=== PATIENT | female | born 1940 | race Caucasian/White ===

== ENCOUNTER 2016-11-14 17:07 | Inpatient (IN) | payer MEDICARE, MEDICAID ==
[~2016-11-14] VITALS: Ht 165.1 cm; Wt 73.7 kg
[~2016-11-14 17:07] MED LIST: ACET-784 PO; CITA20TA9 PO; DONE10TA PO; LOVA20 PO; MEMA10TA11 PO; MERO1I IV; QUET25TA PO
[2016-11-14 18:07] LABS: BASOPHILS % (AUTO) 0.2 % (0.0-2.0); EOSINOPHILS % (AUTO) 1.5 % (1.0-6.0); HEMATOCRIT 48.5 % (36-46); HEMOGLOBIN 15.9 g/dL (12.0-16.0); LYMPHOCYTES # (AUTO) 1.8 K/uL (1.0-4.8); LYMPHOCYTES % (AUTO) 18.3 % (22.0-44.0); MEAN CORPUSCULAR HEMOGLOBIN 30.3 pg (26.0-34.0); MEAN CORPUSCULAR HGB CONC 32.7 G/dL (31.0-37.0); MEAN CORPUSCULAR VOLUME 92 fL (80-100); MONOCYTES # (AUTO) 0.5 K/uL (0.1-1.0); MONOCYTES % (AUTO) 4.6 % (2.0-9.0); NEUTROPHILS # (AUTO) 7.4 K/uL (1.8-7.7); NEUTROPHILS % (AUTO) 75.4 % (40.0-70.0); PLATELET COUNT (AUTO) 418 K/uL (150-450); RED BLOOD CELL COUNT(AUTO) 5.24 MIL/uL (4.00-5.20); RED CELL DISTRIBUTION WIDTH 13.7 % (11.5-14.5); WHITE BLOOD COUNT (AUTO) 9.8 K/uL (4.5-11.0)
[2016-11-14 18:22] LABS: ANION GAP 13 mmol/L (8-16); CALCIUM, TOTAL 10.1 mg/dL (8.8-10.5); CARBON DIOXIDE 24 mmol/L (22-29); CHLORIDE 100 mmol/L (98-107); CREATININE 0.79 mg/dL (0.60-1.30); GLOMERULAR FILTR. RATE CALC > 60 mL/min (>60); SODIUM SERUM 137 mmol/L (136-145); UREA NITROGEN, BLOOD 21 mg/dL (7-18)
[2016-11-14 18:24] LABS: ALANINE AMINOTRANSFERASE 38 U/L (12-78); ALBUMIN 3.6 g/dL (3.4-5.0); ASPARTATE AMINOTRANSFERASE 20 U/L (15-37); BILIRUBIN,TOTAL 0.4 mg/dL (0.1-1.0); TOTAL PROTEIN, SERUM 8.2 g/dL (6.4-8.2)
[2016-11-14 18:37] LABS: B-TYPE NATRIURETIC PEPTIDE 17 pg/mL (0-100)
[2016-11-14] MEDS ORDERED: SODIUM CHLORIDE 0.9% 500 ML IV ONE (19:30)
[2016-11-14 19:57] LABS: APPEARANCE,URINE CLOUDY (CLEAR); GLUCOSE, URINE (UA) NEGATIVE (NEGATIVE); KETONES,URINE 15 mg/dL (NEGATIVE); LEUKOCYTE ESTERASE ,URINE LARGE (NEGATIVE); OCCULT BLOOD,URINE MODERATE (NEGATIVE); PROTEIN,URINE TRACE (NEGATIVE)
[2016-11-14 19:59] LABS: ADD UA MICROSCOPIC YES
[2016-11-14 20:30] LABS: WBC,URINE 51-100 /HPF (0-5)
[2016-11-14] MEDS ORDERED: CIPROFLOXACIN 400 MG/D5% WATER 200 ML IV ONE (20:45)
[2016-11-14 20:50] LABS: GLUCOSE,POINT OF CARE 110 MG/DL (70-110)
[2016-11-14] MEDS ORDERED: MEROPENEM IV SCH (22:30)
[2016-11-14] MEDS ORDERED: ALBUTEROL SULFATE 2.5 MG/0.5 ML NEB SOLUTION NEB PRN (22:30)
[2016-11-14] MEDS ORDERED: ONDANSETRON HCL 4 MG/2 ML VIAL IVP PRN (22:30)
[2016-11-14] MEDS ORDERED: IPRATROPIUM BROMIDE 0.5 MG/2.5 ML NEB SOLUTION NEB PRN (22:30)
[2016-11-14] MEDS ORDERED: MAGNESIUM HYDROXIDE SUSPENSION 30 ML UDCUP PO PRN (22:30)
[2016-11-14] MEDS ORDERED: BISACODYL 10 MG RECTAL RECTAL SUPPOSITORY PR PRN (22:30)
[2016-11-14] MEDS ORDERED: LORazepam 2 MG/ML VIAL IVP PRN (22:30)
[2016-11-14] MEDS ORDERED: ZOLPIDEM TARTRATE 5 MG TABLET PO PRN (22:30)
[2016-11-14 23:36] VITALS: BP 144/83
[2016-11-15] MEDS ORDERED: SODIUM CHLORIDE 0.9% 250 ML IV ONE (00:11)
[2016-11-15] MEDS: MEROPENEM 1 GM in SODIUM CHLORIDE 0.9% 100 ML IV SCH ×3 (00:25→23:38)
[2016-11-15 05:20] VITALS: BP 120/68
[2016-11-15 08:20] VITALS: BP 133/75
[2016-11-15 08:28] LABS: BASOPHILS % (AUTO) 0.6 % (0.0-2.0); EOSINOPHILS % (AUTO) 2.4 % (1.0-6.0); HEMATOCRIT 39.3 % (36-46); HEMOGLOBIN 13.2 g/dL (12.0-16.0); LYMPHOCYTES # (AUTO) 1.2 K/uL (1.0-4.8); LYMPHOCYTES % (AUTO) 17.4 % (22.0-44.0); MEAN CORPUSCULAR HGB CONC 33.6 G/dL (31.0-37.0); MEAN CORPUSCULAR VOLUME 92 fL (80-100); MONOCYTES # (AUTO) 0.6 K/uL (0.1-1.0); MONOCYTES % (AUTO) 8.9 % (2.0-9.0); NEUTROPHILS % (AUTO) 70.7 % (40.0-70.0); PLATELET COUNT (AUTO) 344 K/uL (150-450); RED BLOOD CELL COUNT(AUTO) 4.25 MIL/uL (4.00-5.20); RED CELL DISTRIBUTION WIDTH 13.5 % (11.5-14.5)
[2016-11-15 08:47] LABS: HEMOGLOBIN A1C 5.6 % (4.5-6.2)
[2016-11-15 08:57] LABS: ANION GAP 6 mmol/L (8-16); CALCIUM, TOTAL 9.4 mg/dL (8.8-10.5); CARBON DIOXIDE 28 mmol/L (22-29); CHLORIDE 105 mmol/L (98-107); CHOL/HDL RATIO 2.4 (3.9-5.7); CREATININE 0.63 mg/dL (0.60-1.30); GLOMERULAR FILTR. RATE CALC > 60 mL/min (>60); POTASSIUM 3.7 mmol/L (3.5-5.1); SODIUM SERUM 139 mmol/L (136-145); UREA NITROGEN, BLOOD 21 mg/dL (7-18)
[2016-11-15] MEDS: PANTOPRAZOLE SODIUM 40 MG/VIAL IVP SCH (09:54)
[2016-11-15] MEDS: ENOXAPARIN SODIUM 40 MG/0.4 ML PF SYRINGE SQ SCH (09:55)
[2016-11-15 11:13] VITALS: BP 102/58
[2016-11-15 16:15] VITALS: BP 133/63
[2016-11-15] MEDS: QUEtiapine FUMARATE 25 MG TABLET PO SCH (20:01)
[2016-11-15 20:06] VITALS: BP 121/61
[2016-11-15] MEDS ORDERED: SODIUM CHLORIDE 0.9% 500 ML IV ONE (23:30)
[2016-11-16] VITALS (7 sets, daily range): BP systolic 101–139; BP diastolic 56–71
[2016-11-16 06:41] LABS: BASOPHILS # (AUTO) 0.06 K/uL (0.00-0.20); BASOPHILS % (AUTO) 0.8 % (0.0-2.0); EOSINOPHILS # (AUTO) 0.32 K/uL (0.00-0.70); EOSINOPHILS % (AUTO) 4.36 % (1.0-6.0); HEMATOCRIT 35.4 % (36-46); LYMPHOCYTES # (AUTO) 2.4 K/uL (1.0-4.8); LYMPHOCYTES % (AUTO) 31.7 % (22.0-44.0); MEAN CORPUSCULAR HGB CONC 33.9 G/dL (31.0-37.0); MEAN CORPUSCULAR VOLUME 92 fL (80-100); MONOCYTES # (AUTO) 0.7 K/uL (0.1-1.0); MONOCYTES % (AUTO) 9.2 % (2.0-9.0); NEUTROPHILS % (AUTO) 53.9 % (40.0-70.0); PLATELET COUNT (AUTO) 336 K/uL (150-450); RED BLOOD CELL COUNT(AUTO) 3.87 MIL/uL (4.00-5.20); RED CELL DISTRIBUTION WIDTH 14.1 % (11.5-14.5); WHITE BLOOD COUNT (AUTO) 7.4 K/uL (4.5-11.0)
[2016-11-16 06:49] LABS: ANION GAP 6 mmol/L (8-16); CARBON DIOXIDE 28 mmol/L (22-29); CHLORIDE 104 mmol/L (98-107); CREATININE 0.63 mg/dL (0.60-1.30); GLOMERULAR FILTR. RATE CALC > 60 mL/min (>60); POTASSIUM 4.3 mmol/L (3.5-5.1); SODIUM SERUM 138 mmol/L (136-145); UREA NITROGEN, BLOOD 21 mg/dL (7-18)
[2016-11-16] MEDS: PANTOPRAZOLE SODIUM 40 MG/VIAL IVP SCH (08:29)
[2016-11-16] MEDS: ENOXAPARIN SODIUM 40 MG/0.4 ML PF SYRINGE SQ SCH (08:29)
[2016-11-16] MEDS: CefoTEtan DISOD 1 GM/DEXTROSE 50 ML IV SCH ×2 (11:38→22:04)
[2016-11-16] MEDS: QUEtiapine FUMARATE 25 MG TABLET PO SCH (20:13)
[2016-11-17 04:00] VITALS: BP 115/62
[2016-11-17 08:00] VITALS: BP 145/73
[2016-11-17] MEDS: CefoTEtan DISOD 1 GM/DEXTROSE 50 ML IV SCH ×2 (08:38→21:21)
[2016-11-17] MEDS: PANTOPRAZOLE SODIUM 40 MG/VIAL IVP SCH (08:39)
[2016-11-17] MEDS: ENOXAPARIN SODIUM 40 MG/0.4 ML PF SYRINGE SQ SCH (08:39)
[2016-11-17 09:07] LABS: EOSINOPHILS % (AUTO) 4.7 % (1.0-6.0); HEMATOCRIT 37.8 % (36-46); HEMOGLOBIN 12.4 g/dL (12.0-16.0); LYMPHOCYTES # (AUTO) 1.6 K/uL (1.0-4.8); LYMPHOCYTES % (AUTO) 28.3 % (22.0-44.0); MEAN CORPUSCULAR HEMOGLOBIN 30.4 pg (26.0-34.0); MEAN CORPUSCULAR HGB CONC 32.8 G/dL (31.0-37.0); MEAN CORPUSCULAR VOLUME 93 fL (80-100); MONOCYTES # (AUTO) 0.4 K/uL (0.1-1.0); MONOCYTES % (AUTO) 6.9 % (2.0-9.0); NEUTROPHILS # (AUTO) 3.4 K/uL (1.8-7.7); NEUTROPHILS % (AUTO) 59.1 % (40.0-70.0); PLATELET COUNT (AUTO) 311 K/uL (150-450); RED BLOOD CELL COUNT(AUTO) 4.09 MIL/uL (4.00-5.20); RED CELL DISTRIBUTION WIDTH 14.1 % (11.5-14.5); WHITE BLOOD COUNT (AUTO) 5.7 K/uL (4.5-11.0)
[2016-11-17 09:11] LABS: ANION GAP 6 mmol/L (8-16); CALCIUM, TOTAL 9.1 mg/dL (8.8-10.5); CARBON DIOXIDE 28 mmol/L (22-29); CHLORIDE 104 mmol/L (98-107); CREATININE 0.63 mg/dL (0.60-1.30); GLOMERULAR FILTR. RATE CALC > 60 mL/min (>60); POTASSIUM 3.9 mmol/L (3.5-5.1); SODIUM SERUM 138 mmol/L (136-145); UREA NITROGEN, BLOOD 19 mg/dL (7-18)
[2016-11-17 12:58] VITALS: BP 132/80
[2016-11-17] MEDS: TIOTROPIUM BROMIDE 18 MCG/INH HANDIHALER [5] IH SCH (13:58)
[2016-11-17] MEDS: CHOLECALCIFEROL (VIT D3) 1,000 UNITS TABLET PO SCH (13:58)
[2016-11-17 15:15] VITALS: BP 138/48
[2016-11-17 19:37] VITALS: BP 135/90
[2016-11-17] MEDS: QUEtiapine FUMARATE 25 MG TABLET PO SCH (21:17)
[2016-11-17] MEDS ORDERED: SODIUM CHLORIDE 0.9% 250 ML IV ONE (21:20)
[2016-11-17 23:28] VITALS: BP 139/66
[2016-11-18 04:40] VITALS: BP 145/76
[2016-11-18 08:04] VITALS: BP 123/79
[2016-11-18] MEDS: CefoTEtan DISOD 1 GM/DEXTROSE 50 ML IV SCH ×2 (08:17→22:43)
[2016-11-18] MEDS: CHOLECALCIFEROL (VIT D3) 1,000 UNITS TABLET PO SCH (08:18)
[2016-11-18] MEDS: PANTOPRAZOLE SODIUM 40 MG/VIAL IVP SCH (08:18)
[2016-11-18] MEDS: ENOXAPARIN SODIUM 40 MG/0.4 ML PF SYRINGE SQ SCH (08:18)
[2016-11-18] MEDS: TIOTROPIUM BROMIDE 18 MCG/INH HANDIHALER [5] IH SCH (08:27)
[2016-11-18 11:21] VITALS: BP 123/64
[2016-11-18 15:16] VITALS: BP 135/93
[2016-11-18 20:00] VITALS: BP 135/79
[2016-11-18] MEDS: QUEtiapine FUMARATE 25 MG TABLET PO SCH (20:41)
[2016-11-19] VITALS: BP 116/72
[2016-11-19 04:00] VITALS: BP 129/68
[2016-11-19 07:37] VITALS: BP 129/55
[2016-11-19] MEDS: PANTOPRAZOLE SODIUM 40 MG/VIAL IVP SCH (08:15)
[2016-11-19] MEDS: CHOLECALCIFEROL (VIT D3) 1,000 UNITS TABLET PO SCH (08:15)
[2016-11-19] MEDS: ENOXAPARIN SODIUM 40 MG/0.4 ML PF SYRINGE SQ SCH (08:15)
[2016-11-19] MEDS: CefoTEtan DISOD 1 GM/DEXTROSE 50 ML IV SCH (10:27)
[2016-11-19] MEDS: TIOTROPIUM BROMIDE 18 MCG/INH HANDIHALER [5] IH SCH (10:27)
[2016-11-19] MEDS ORDERED: SODIUM CHLORIDE 0.9% 500 ML IV ONE (10:34)
[2016-11-19 11:29] VITALS: BP 138/69
[2016-11-19] MEDS ORDERED: VITAD1000 PO (15:55)
[2016-11-19] MEDS ORDERED: PANT40TA25 PO (15:56)
[2016-11-19] MEDS ORDERED: TIOT185 IH (15:56)
[2016-11-19 16:35] VITALS: BP 124/83
== END 2016-11-19 18:20 | DRG 689 ==
LOC: EMS 17:09 → 6N 21:31
PROVIDERS: ADMIT Internal Medicine Geriatric Medicine; ATTEND Internal Medicine Geriatric Medicine
DX: N39.0 Urinary tract infection, site not specified (principal); G93.40 Encephalopathy, unspecified; J44.9 Chronic obstructive pulmonary disease, unspecified; I10 Essential (primary) hypertension; I25.10 Atherosclerotic heart disease of native coronary artery without angina pectoris; E78.5 Hyperlipidemia, unspecified; I69.319 Unspecified symptoms and signs involving cognitive functions following cerebral infarction; F01.50 Vascular dementia, unspecified severity, without behavioral disturbance, psychotic disturbance, mood disturbance, and anxiety; B96.20 Unspecified Escherichia coli [E. coli] as the cause of diseases classified elsewhere; H54.8 Legal blindness, as defined in USA; F02.80 Dementia in other diseases classified elsewhere, unspecified severity, without behavioral disturbance, psychotic disturbance, mood disturbance, and anxiety; G30.9 Alzheimer's disease, unspecified; R79.89 Other specified abnormal findings of blood chemistry; Z16.24 Resistance to multiple antibiotics; Z74.01 Bed confinement status; Z88.6 Allergy status to analgesic agent; Z88.5 Allergy status to narcotic agent; Z88.2 Allergy status to sulfonamides; Z88.0 Allergy status to penicillin; Z88.8 Allergy status to other drugs, medicaments and biological substances; Z91.030 Bee allergy status; Z88.1 Allergy status to other antibiotic agents; Z90.49 Acquired absence of other specified parts of digestive tract; Z79.899 Other long term (current) drug therapy
CPT/HCPCS: 82306; 82607; 82746; 82962; 83036; 83735; 84439; 84443; 87081; 87086; 93005; 96361; 96365; 96366; 99285; C9113; J0744; J1650; J2060; J2185; J3490; J7040; J7050

== ENCOUNTER 2017-01-08 16:53 | Inpatient (IN) | payer MEDICARE, OTHER ==
[~2017-01-08] VITALS: Ht 162.6 cm; Wt 70.4 kg
[~2017-01-08 16:53] MED LIST changes: -MERO1I IV; +PANT40TA25 PO; +TIOT185 IH; +VITAD1000 PO
[2017-01-08 18:05] LABS: EOSINOPHILS % (AUTO) 8.2 % (1.0-6.0); HEMATOCRIT 42.8 % (36-46); LYMPHOCYTES # (AUTO) 1.7 K/uL (1.0-4.8); LYMPHOCYTES % (AUTO) 18.6 % (22.0-44.0); MEAN CORPUSCULAR HGB CONC 32.6 G/dL (31.0-37.0); MEAN CORPUSCULAR VOLUME 92 fL (80-100); MONOCYTES # (AUTO) 0.7 K/uL (0.1-1.0); NEUTROPHILS # (AUTO) 5.7 K/uL (1.8-7.7); NEUTROPHILS % (AUTO) 64.2 % (40.0-70.0); PLATELET COUNT (AUTO) 368 K/uL (150-450); RED BLOOD CELL COUNT(AUTO) 4.65 MIL/uL (4.00-5.20); WHITE BLOOD COUNT (AUTO) 8.9 K/uL (4.5-11.0)
[2017-01-08 18:17] LABS: ANION GAP 13 mmol/L (8-16); APPEARANCE,URINE CLOUDY (CLEAR); CALCIUM, TOTAL 9.5 mg/dL (8.8-10.5); CARBON DIOXIDE 25 mmol/L (22-29); CHLORIDE 102 mmol/L (98-107); CREATININE 0.72 mg/dL (0.60-1.30); GLOMERULAR FILTR. RATE CALC > 60 mL/min (>60); GLUCOSE, URINE (UA) NEGATIVE (NEGATIVE); KETONES,URINE 15 mg/dL (NEGATIVE); LEUKOCYTE ESTERASE ,URINE SMALL (NEGATIVE); OCCULT BLOOD,URINE NEGATIVE (NEGATIVE); POTASSIUM 3.6 mmol/L (3.5-5.1); PROTEIN,URINE TRACE (NEGATIVE); SODIUM SERUM 140 mmol/L (136-145); UREA NITROGEN, BLOOD 10 mg/dL (7-18)
[2017-01-08 18:23] LABS: ALANINE AMINOTRANSFERASE 19 U/L (12-78); ALBUMIN 3.2 g/dL (3.4-5.0); ASPARTATE AMINOTRANSFERASE 19 U/L (15-37); BILIRUBIN,TOTAL 0.4 mg/dL (0.1-1.0); TOTAL PROTEIN, SERUM 7.2 g/dL (6.4-8.2)
[2017-01-08 18:26] LABS: RBC,URINE 0-2 /HPF (0-2); SQUAMOUS EPITHELIAL CELL,UR Moderate /LPF (None Seen)
[2017-01-08 18:46] LABS: B-TYPE NATRIURETIC PEPTIDE 29 pg/mL (0-100)
[2017-01-08] MEDS ORDERED: CefTRIAXone 1 GM/DEXTROSE 50 ML IV ONE (19:15)
[2017-01-08] MEDS ORDERED: SODIUM CHLORIDE 0.9% 1,000 ML IV ONE (19:15)
[2017-01-08] MEDS ORDERED: ACETAMINOPHEN 650 MG/ISO-OSM 65 ML IV ONE (20:00)
[2017-01-08] MEDS ORDERED: ACETAMINOPHEN 325 MG TABLET PO PRN ×2 (20:30→20:45)
[2017-01-08] MEDS ORDERED: 0.9% SODIUM CHLORIDE 10 ML SYRINGE IVP PRN (20:30)
[2017-01-08] MEDS ORDERED: ONDANSETRON HCL 4 MG/2 ML VIAL IVP PRN ×2 (20:30→20:45)
[2017-01-08] MEDS ORDERED: IPRATROPIUM BROMIDE 0.5 MG/2.5 ML NEB SOLUTION NEB PRN (20:45)
[2017-01-08] MEDS ORDERED: BISACODYL 10 MG RECTAL RECTAL SUPPOSITORY PR PRN (20:45)
[2017-01-08] MEDS ORDERED: ALBUTEROL SULFATE 2.5 MG/0.5 ML NEB SOLUTION NEB PRN (20:45)
[2017-01-08 21:46] VITALS: BP 131/69
[2017-01-08 23:30] VITALS: BP 133/69
[2017-01-09 04:52] VITALS: BP 128/63
[2017-01-09 06:19] LABS: BASOPHILS % (AUTO) 2.6 % (0.0-2.0); HEMATOCRIT 39.5 % (36-46); HEMOGLOBIN 12.9 g/dL (12.0-16.0); LYMPHOCYTES # (AUTO) 1.7 K/uL (1.0-4.8); LYMPHOCYTES % (AUTO) 27.5 % (22.0-44.0); MEAN CORPUSCULAR HEMOGLOBIN 30.2 pg (26.0-34.0); MEAN CORPUSCULAR HGB CONC 32.7 G/dL (31.0-37.0); MEAN CORPUSCULAR VOLUME 92 fL (80-100); MONOCYTES # (AUTO) 0.4 K/uL (0.1-1.0); MONOCYTES % (AUTO) 7.2 % (2.0-9.0); NEUTROPHILS # (AUTO) 2.8 K/uL (1.8-7.7); NEUTROPHILS % (AUTO) 46.5 % (40.0-70.0); PLATELET COUNT (AUTO) 321 K/uL (150-450); RED BLOOD CELL COUNT(AUTO) 4.28 MIL/uL (4.00-5.20); RED CELL DISTRIBUTION WIDTH 14.2 % (11.5-14.5); WHITE BLOOD COUNT (AUTO) 6.1 K/uL (4.5-11.0)
[2017-01-09 07:01] LABS: HEMOGLOBIN A1C 5.7 % (4.5-6.2)
[2017-01-09 07:04] LABS: ANION GAP 9 mmol/L (8-16); CALCIUM, TOTAL 9.1 mg/dL (8.8-10.5); CARBON DIOXIDE 26 mmol/L (22-29); CHLORIDE 108 mmol/L (98-107); CHOL/HDL RATIO 2.6 (3.9-5.7); CREATININE 0.66 mg/dL (0.60-1.30); GLOMERULAR FILTR. RATE CALC > 60 mL/min (>60); POTASSIUM 3.2 mmol/L (3.5-5.1); SODIUM SERUM 143 mmol/L (136-145); THYROID STIMULATING HORMONE 0.57 uIU/mL (0.36-3.74); UREA NITROGEN, BLOOD 7 mg/dL (7-18)
[2017-01-09 08:03] VITALS: BP 127/75
[2017-01-09 08:29] LABS: EOSINOPHILS % (AUTO) 16.2 % (1.0-6.0)
[2017-01-09] MEDS: CITALOPRAM HYDROBROMIDE 20 MG TABLET PO SCH (09:04)
[2017-01-09] MEDS: LOVASTATIN 20 MG TABLET PO SCH (09:04)
[2017-01-09] MEDS: MEMANTINE HCL 10 MG TABLET PO SCH (09:04)
[2017-01-09] MEDS: PANTOPRAZOLE SODIUM 40 MG/VIAL IVP SCH (09:04)
[2017-01-09] MEDS: CHOLECALCIFEROL (VIT D3) 2,000 UNITS TABLET PO SCH (09:04)
[2017-01-09] MEDS: ENOXAPARIN SODIUM 40 MG/0.4 ML PF SYRINGE SQ SCH (09:19)
[2017-01-09 11:37] VITALS: BP 116/53
[2017-01-09] MEDS ORDERED: PERMETHRIN 5% 60 GM CREAM TP ONE (12:00)
[2017-01-09] MEDS ORDERED: POTASSIUM CHLORIDE 20 MEQ ER TABLET PO PRN (15:30)
[2017-01-09 15:46] VITALS: BP 94/55
[2017-01-09 19:36] VITALS: BP 145/68
[2017-01-09] MEDS: CefoTEtan DISOD 1 GM/DEXTROSE 50 ML IV SCH (21:30)
[2017-01-09 23:47] VITALS: BP 152/87
[2017-01-10 05:04] VITALS: BP 127/86
[2017-01-10 06:13] LABS: EOSINOPHILS % (AUTO) 12.6 % (1.0-6.0); HEMATOCRIT 38.8 % (36-46); HEMOGLOBIN 12.7 g/dL (12.0-16.0); LYMPHOCYTES # (AUTO) 1.5 K/uL (1.0-4.8); LYMPHOCYTES % (AUTO) 26.4 % (22.0-44.0); MEAN CORPUSCULAR HEMOGLOBIN 30.3 pg (26.0-34.0); MEAN CORPUSCULAR HGB CONC 32.7 G/dL (31.0-37.0); MEAN CORPUSCULAR VOLUME 93 fL (80-100); MONOCYTES # (AUTO) 0.6 K/uL (0.1-1.0); MONOCYTES % (AUTO) 9.7 % (2.0-9.0); NEUTROPHILS # (AUTO) 2.9 K/uL (1.8-7.7); NEUTROPHILS % (AUTO) 50.3 % (40.0-70.0); PLATELET COUNT (AUTO) 363 K/uL (150-450); RED BLOOD CELL COUNT(AUTO) 4.19 MIL/uL (4.00-5.20); WHITE BLOOD COUNT (AUTO) 5.7 K/uL (4.5-11.0)
[2017-01-10 06:24] LABS: ANION GAP 12 mmol/L (8-16); CALCIUM, TOTAL 9.1 mg/dL (8.8-10.5); CARBON DIOXIDE 22 mmol/L (22-29); CHLORIDE 107 mmol/L (98-107); CREATININE 0.78 mg/dL (0.60-1.30); GLOMERULAR FILTR. RATE CALC > 60 mL/min (>60); SODIUM SERUM 141 mmol/L (136-145); UREA NITROGEN, BLOOD 11 mg/dL (7-18)
[2017-01-10 08:00] VITALS: BP 161/71
[2017-01-10] MEDS: CefoTEtan DISOD 1 GM/DEXTROSE 50 ML IV SCH ×2 (08:31→21:07)
[2017-01-10] MEDS: CITALOPRAM HYDROBROMIDE 20 MG TABLET PO SCH (08:32)
[2017-01-10] MEDS: MEMANTINE HCL 10 MG TABLET PO SCH (08:32)
[2017-01-10] MEDS: LOVASTATIN 20 MG TABLET PO SCH (08:32)
[2017-01-10] MEDS: CHOLECALCIFEROL (VIT D3) 2,000 UNITS TABLET PO SCH (08:32)
[2017-01-10] MEDS: ENOXAPARIN SODIUM 40 MG/0.4 ML PF SYRINGE SQ SCH (08:32)
[2017-01-10] MEDS: PANTOPRAZOLE SODIUM 40 MG/VIAL IVP SCH (08:37)
[2017-01-10 12:41] VITALS: BP 141/99
[2017-01-10 16:00] VITALS: BP 118/58
[2017-01-10 20:51] VITALS: BP 100/60
[2017-01-10] MEDS ORDERED: SODIUM CHLORIDE 0.9% 500 ML IV ONE (21:10)
[2017-01-10 23:42] VITALS: BP 116/72
[2017-01-11 05:15] VITALS: BP 124/74
[2017-01-11 07:15] VITALS: BP 156/107
[2017-01-11] MEDS: CefoTEtan DISOD 1 GM/DEXTROSE 50 ML IV SCH (08:14)
[2017-01-11] MEDS: CHOLECALCIFEROL (VIT D3) 2,000 UNITS TABLET PO SCH (08:14)
[2017-01-11] MEDS: CITALOPRAM HYDROBROMIDE 20 MG TABLET PO SCH (08:14)
[2017-01-11] MEDS: LOVASTATIN 20 MG TABLET PO SCH (08:14)
[2017-01-11] MEDS: ENOXAPARIN SODIUM 40 MG/0.4 ML PF SYRINGE SQ SCH (08:14)
[2017-01-11] MEDS: MEMANTINE HCL 10 MG TABLET PO SCH (08:14)
[2017-01-11] MEDS: PANTOPRAZOLE SODIUM 40 MG/VIAL IVP SCH (08:20)
[2017-01-11 08:24] LABS: ANION GAP 11 mmol/L (8-16); CALCIUM, TOTAL 9.3 mg/dL (8.8-10.5); CARBON DIOXIDE 24 mmol/L (22-29); CHLORIDE 105 mmol/L (98-107); CREATININE 0.62 mg/dL (0.60-1.30); GLOMERULAR FILTR. RATE CALC > 60 mL/min (>60); POTASSIUM 4.2 mmol/L (3.5-5.1); SODIUM SERUM 140 mmol/L (136-145); UREA NITROGEN, BLOOD 10 mg/dL (7-18)
[2017-01-11 08:26] LABS: BASOPHILS # (AUTO) 0.04 K/uL (0.00-0.20); BASOPHILS % (AUTO) 0.6 % (0.0-2.0); EOSINOPHILS % (AUTO) 13.18 % (1.0-6.0); HEMATOCRIT 39.4 % (36-46); HEMOGLOBIN 13.3 g/dL (12.0-16.0); LYMPHOCYTES # (AUTO) 1.8 K/uL (1.0-4.8); LYMPHOCYTES % (AUTO) 26.5 % (22.0-44.0); MEAN CORPUSCULAR HEMOGLOBIN 30.5 pg (26.0-34.0); MEAN CORPUSCULAR HGB CONC 33.8 G/dL (31.0-37.0); MEAN CORPUSCULAR VOLUME 90 fL (80-100); MONOCYTES # (AUTO) 0.6 K/uL (0.1-1.0); MONOCYTES % (AUTO) 8.3 % (2.0-9.0); NEUTROPHILS # (AUTO) 3.5 K/uL (1.8-7.7); NEUTROPHILS % (AUTO) 51.4 % (40.0-70.0); PLATELET COUNT (AUTO) 382 K/uL (150-450); RED BLOOD CELL COUNT(AUTO) 4.36 MIL/uL (4.00-5.20); RED CELL DISTRIBUTION WIDTH 14.6 % (11.5-14.5); WHITE BLOOD COUNT (AUTO) 6.8 K/uL (4.5-11.0)
[2017-01-11] MEDS ORDERED: DiphenhydrAMINE HCL 50 MG/ML VIAL IVP PRN (10:30)
[2017-01-11 11:35] VITALS: BP 140/64
[2017-01-11] MEDS ORDERED: DIPH25 PO (14:47)
[2017-01-11] MEDS ORDERED: IPRNEB IH (14:47)
[2017-01-11] MEDS ORDERED: ONDA4 PO (14:47)
[2017-01-11] MEDS ORDERED: AUD NEB (14:47)
[2017-01-11] MEDS ORDERED: BISA10S PR (14:47)
[2017-01-11] MEDS ORDERED: MACR100 PO (14:53)
[2017-01-11 15:00] VITALS: BP 138/70
== END 2017-01-11 18:10 | disposition home or self-care (01) | DRG 689 ==
LOC: EMS 16:56 → 6N 19:30
PROVIDERS: ADMIT Internal Medicine Geriatric Medicine; ATTEND Internal Medicine Geriatric Medicine
DX: N39.0 Urinary tract infection, site not specified (principal); G93.41 Metabolic encephalopathy; E44.0 Moderate protein-calorie malnutrition; F02.80 Dementia in other diseases classified elsewhere, unspecified severity, without behavioral disturbance, psychotic disturbance, mood disturbance, and anxiety; F32.9 Major depressive disorder, single episode, unspecified; I25.10 Atherosclerotic heart disease of native coronary artery without angina pectoris; E87.6 Hypokalemia; G30.9 Alzheimer's disease, unspecified; I10 Essential (primary) hypertension; R62.7 Adult failure to thrive; J44.9 Chronic obstructive pulmonary disease, unspecified; Z88.0 Allergy status to penicillin; Z88.2 Allergy status to sulfonamides; Z88.8 Allergy status to other drugs, medicaments and biological substances; Z88.6 Allergy status to analgesic agent; Z91.030 Bee allergy status; Z86.73 Personal history of transient ischemic attack (TIA), and cerebral infarction without residual deficits; Z68.26 Body mass index [BMI] 26.0-26.9, adult; Z90.49 Acquired absence of other specified parts of digestive tract; Z88.1 Allergy status to other antibiotic agents
CPT/HCPCS: 51702; 82306; 82607; 82746; 83036; 83605; 83735; 84132; 84439; 84443; 87040; 87086; 93005; 96365; 96367; 99285; C9113; J0131; J0696; J1200; J1650; J3490; J7030; J7040